=== PATIENT | female | born 2000 | race Two or more races ===

== ENCOUNTER 2025-01-04 16:30 | Inpatient (IN) | payer OTHER ==
[~2025-01-04] VITALS: Ht 160 cm; Wt 64.4 kg
[2025-01-04 16:06] VITALS: BP 131/77; BP 132/77
[2025-01-04] MEDS ORDERED: RINGERS SOLUTION,LACTATED 10,000 ML IV SCH (16:45)
[2025-01-04] MEDS ORDERED: MORPHINE SULFATE 4 MG/ML CARTRIDGE IV PRN (16:45)
[2025-01-04 16:53] VITALS: BP 131/77
[2025-01-04 17:38] LABS: BASO % 0.3 % (0.1-1.2); EOS # 0.02 (0.04-0.54); EOS % 0.2 % (0.7-7.0); LYMPH # 2.07 (1.18-3.74); LYMPH % 18.5 % (19.3-53.1); MEAN PLATELET VOLUME 13.30 fl (9.4-12.4); MONO # 0.57 (0.24-0.82); MONO % 5.1 % (4.7-12.5); NEUT # 8.44 (1.56-6.13); NEUT % 75.5 % (34.0-71.1); RED CELL DISTRIBUTION WIDTH 15.0 % (11.6-14.4)
[2025-01-04 17:40] LABS: URINE APPEARANCE Turbid; URINE BILIRRUBIN Small (NEGATIVE); URINE BLOOD Negative; URINE COLOR Dark Yellow; URINE GLUCOSE Negative (NEGATIVE); URINE KETONE Trace (NEGATIVE); URINE LEUKOCYTE Moderate; URINE NITRATE Negative; URINE PROTEIN 30 (NEGATIVE); URINE UROBILINOGEN 1.0 E.U./dl
[2025-01-04 17:43] LABS: URINE RBC 4.2 uL (0.0-20.8); URINE WBC 157.2 uL (0.0-23.2)
[2025-01-04 17:53] LABS: TYPE CELLS SQUAMOUS; URINE BACTERIA > 9821.5 uL (0.0-1933); URINE CAST 0.87 uL (0.0-1.40); URINE EPITHELIAL CELLS > 201.7 uL (0.0-38.8); URINE MUCUS MODERATE
[2025-01-04 17:59] LABS: INR < 0.93
[2025-01-04 18:05] LABS: ALT/SGPT 158.0 U/L (12-78); AST/SGOT 66.0 U/L (15-37); BILIRUBIN TOTAL 0.5 mg/dL (0.3-1.2); BUN CREA RATIO 19.0 (7.0-25.0); CREATININE SERUM 0.59 mg/dL (0.55-1.02); GFR 126.31; GLOBULINA 4.0 G/DL (2.4-3.5); GLUCOSE FASTING 93.0 mg/dL (65-100); OSMOLALITY SERUM 271.0 MOSM/KG (275-295)
[2025-01-04] MEDS ORDERED: OXYTOCIN 20 UNITS/1000ML RL PIGGYBAG IV ONE (21:04)
[2025-01-04] MEDS ORDERED: CHLORHEXIDINE GLUCONATE 120 ML BOTTLE TOP ONE (21:04)
[2025-01-04] MEDS ORDERED: LIDOCAINE HCL 1% 10ML VIAL ONE (21:04)
[2025-01-04] MEDS ORDERED: ERYTHROMYCIN BASE OPHT 1GM EACH TUBE OP ONE (21:04)
[2025-01-04] MEDS ORDERED: OXYTOCIN 20 UNITS/500ML RL PIGGYBAG IV ONE (22:03)
[2025-01-04] MEDS ORDERED: OXYTOCIN 500 ML IV SCH (22:45)
[2025-01-04 23:08] VITALS: BP 137/86
[2025-01-05] VITALS (8 sets, daily range): BP systolic 116–136; BP diastolic 69–87
[2025-01-05] MEDS ORDERED: CHLORHEXIDINE GLUCONATE 120 ML BOTTLE TOP SCH (00:45)
[2025-01-05] MEDS ORDERED: ACETAMINOPHEN 500 MG GEL..CAP PO PRN (00:45)
[2025-01-05] MEDS ORDERED: OXYTOCIN 1,000 ML IV SCH (00:45)
[2025-01-05] MEDS ORDERED: BENZOCAINE/MENTHOL 90 ML BOTTLE TOP SCH ×2 (02:00→10:00)
[2025-01-05] MEDS ORDERED: DOCUSATE SODIUM 100MG CAP PO SCH (09:00)
[2025-01-06] VITALS: BP 138/87
[2025-01-06] MEDS ORDERED: COLACE100 MG PO (09:21)
[2025-01-06 09:52] VITALS: BP 128/86
== END 2025-01-06 13:45 | disposition home or self-care (01) | DRG 807 ==
LOC: LDR 16:30 → OB/GYN 16:30
PROVIDERS: ADMIT Obstetrics & Gynecology; ATTEND Obstetrics & Gynecology
PROC: 4A1HXCZ Monitoring of Products of Conception, Cardiac Rate, External Approach (ICD-10-PCS; 2025-01-04)
PROC: 10E0XZZ Delivery of Products of Conception, External Approach (ICD-10-PCS; principal; 2025-01-05)
PROC: 0KQM0ZZ Repair Perineum Muscle, Open Approach (ICD-10-PCS; 2025-01-05)
DX: O70.1 Second degree perineal laceration during delivery (principal); Z37.0 Single live birth; Z3A.38 38 weeks gestation of pregnancy